=== PATIENT | female | born 1975 | race African-American/Black ===

== ENCOUNTER 2021-10-21 19:51 | Emergency (ER) | payer MEDICAID ==
[~2021-10-21] VITALS: Ht 170.2 cm; Wt 96.2 kg
[~2021-10-21 19:51] MED LIST: AMLO-337 PO; ASPI-1497 PO; ATOR40TA70 PO; HYDR-4134 PO; METO-539 PO
[2021-10-21 20:27] VITALS: BP 127/88
== END 2021-10-21 23:00 | disposition left against medical advice (07) ==
LOC: ER 19:51
DX: Z53.21 Procedure and treatment not carried out due to patient leaving prior to being seen by health care provider (principal)